=== PATIENT | female | born 1945 | race Caucasian/White ===

== ENCOUNTER 2023-10-08 06:02 | Day surgery (SDC) | payer MEDICARE ==
[2023-09-28 11:03] VITALS: BMI 29.0
[2023-10-08] MEDS ORDERED: Dexamethasone 20 MG/5 ML VIAL ONE ×2 (06:28→08:17)
[2023-10-08] MEDS ORDERED: PROPOFOL 20 ML ONE ×3 (06:28→08:17)
[2023-10-08] MEDS ORDERED: fentaNYL 50 mcg/mL 1 mL Vial ONE ×2 (06:28→08:17)
[2023-10-08] MEDS ORDERED: Ondansetron PF 4 MG/2 ML Vial ONE ×2 (06:28→08:17)
[2023-10-08] MEDS ORDERED: Lidocaine 1% PF 5 ML VIAL ONE (08:17)
[2023-10-08] MEDS ORDERED: Rocuronium Bromide 10 MG/ML (10ML VIAL) ONE (08:17)
[2023-10-08] MEDS ORDERED: CEFAZOLIN 2 GM VIAL ONE (08:21)
[2023-10-08] MEDS ORDERED: Midazolam HCl 2 mg/2 ml Vial ONE (08:22)
[2023-10-08] MEDS ORDERED: ePHEDrine Sulfate 50 MG/10 ML VIAL ONE (09:01)
[2023-10-08] MEDS ORDERED: SUGAMMADEX SODIUM 200 MG/2 ML VIAL ONE (09:23)
[2023-10-08] MEDS ORDERED: Promethazine HCl 25 MG/ML VIAL ONE (10:02)
== END 2023-10-08 11:30 | disposition home or self-care (01) ==
LOC: CSHSDC 06:02
PROVIDERS: ATTEND Otolaryngology Otolaryngic Allergy
PROC: 0GTR0ZZ Resection of Parathyroid Gland, Open Approach (ICD-10-PCS; principal; 2023-10-08)
DX: E21.3 Hyperparathyroidism, unspecified (principal); H26.9 Unspecified cataract; I10 Essential (primary) hypertension; I48.91 Unspecified atrial fibrillation; Z79.82 Long term (current) use of aspirin; Z90.49 Acquired absence of other specified parts of digestive tract; Z98.890 Other specified postprocedural states; Z79.899 Other long term (current) drug therapy
CPT/HCPCS: 60500; 83970; J1100; J2250; J2405; J2550; J2704; J3010; 36415; 88305; 88331